=== PATIENT | male | born 1950 | race Caucasian/White ===

== ENCOUNTER 2017-04-06 20:21 | Observation (INO) | payer MEDICARE, OTHER ==
[2017-04-06 21:00] LABS: #Basophils 0.1 thou/uL (0.0-0.2); #Eosinphils 0.7 thou/uL (0.0-0.7); #Lymphocytes 2.2 thou/uL (1.20-3.40); #Monocytes 1.1 thou/uL (0.11-0.59); #Neutrophils 8.9 thou/uL (1.40-6.50); %Basophils 0.5 % (0.0-1.0); %Eosinophils 5.1 % (0.0-10.0); %Lymphocytes 17.1 % (21.0-51.0); %Monocytes 8.7 % (0.0-10.0); %Neutrophils 68.6 % (42.0-75.0); Hemoglobin 16.6 g/dL (14.0-18.0); Mean Corpuscular HGB CONC 33.5 g/dL (32.0-36.0); Mean Corpuscular Hemoglobin 32.5 pg (27.0-31.0); Mean Corpuscular Volume 97.2 fl (80.0-94.0); Mean Platelet Volume 6.3 fL (7.4-10.4); Platelet Count 283 thou/uL (130-400); RBC Distribution Width 11.6 % (11.5-14.5); Red Blood Cell (RBC) Count 5.12 mill/uL (4.70-6.10)
[2017-04-06 21:22] LABS: ALT (SGPT) 30 U/L (8-55); AST (SGOT) 17 U/L (5-34); Albumin 4.1 g/dL (3.4-4.8); Alkaline Phosphatase 130 U/L (40-150); Anion Gap 14 mmol/L (10-20); BUN (Urea Nitrogen) 42 mg/dL (8.4-25.7); Bilirubin, Total 0.3 mg/dL (0.2-1.2); Calc. Creatinine Clearance 0 mL/min (70-130); Calcium 9.6 mg/dL (7.8-10.44); Carbon Dioxide 26 mmol/L (23-31); Chloride 103 mmol/L (98-107); Estimated GFR-MDRD 29; Globulin 2.9 g/dL (2.4-3.5); Glucose 162 mg/dL (80-115); Sodium 139 mmol/L (136-145)
[2017-04-06 21:26] LABS: CKMB 2.5 ng/mL (0-6.6)
--- NOTE | 2017-04-06 23:01 | CT ---
CT BRAIN WITHOUT CONTRAST: History: Syncope. Comparison: None. FINDINGS: There is fluid filling both maxillary sinuses, worse on the right. No acute territorial infarct or hemorrhage. Mild atrophy. Calvarium is intact. IMPRESSION: No acute intracranial abnormality. POS: HOME
--- NOTE | 2017-04-06 23:09 | CT ---
CT CERVICAL SPINE WITHOUT CONTRAST: History: Syncope. Comparison: None. FINDINGS: The odontoid process is intact. Occipital condyles are intact. Chronic remottling of the mandibular c ondyles. Mild uncinate process hypertrophy at C2 through C6. No displaced fracture or malalignment. Nuchal ligament calcifications are present. Lung apices are clear. Paraspinal soft tissues are unrema rkable. IMPRESSION: Degenerative changes. No acute fracture or malalignment. POS: HOME
--- NOTE | 2017-04-06 23:30 | PDOC.EVN ---
Event Note - Event Note Event Note: [id number] H&P Dictated 1. Syncope 2. HTN 3. RELL Plan: see orders
[2017-04-06] MEDS ORDERED: Acetaminophen 325 MG TAB PO PRN (23:42)
[2017-04-06] MEDS ORDERED: Ondansetron HCl/PF 4 MG/2 ML Vial IVP PRN (23:42)
[2017-04-06] MEDS ORDERED: Ondansetron ODT 4 MG TAB SL PRN (23:42)
--- NOTE | 2017-04-06 23:57 | RAD ---
SEMI UPRIGHT PORTABLE CHEST ONE VIEW: History: 66-year-old male with syncope. FINDINGS: Heart size is within normal limits. The appear to be some healed right rib fractures. Atherosclerosis of the aorta with some ectasia. No confluent pneumonia, overt edema or pleural effusion. IMPRESSION: No acute intrathoracic disease. POS: [facility]
[2017-04-07 00:16] VITALS: BMI 36.5
[2017-04-07 00:33] LABS: Troponin I 0.014 ng/mL (< 0.028)
[2017-04-07] MEDS ORDERED: Albuterol Sulfate 2.5 mg/3 ml Neb NEB PRN (01:48)
[2017-04-07] MEDS: Guaifenesin DM 100-10/5 ML UDCUP PO PRN ×2 (02:05→12:44)
[2017-04-07] MEDS: Sodium Chloride 0.9% 1,000 ML IV SCH (02:13)
[2017-04-07 02:55] LABS: #Basophils 0.1 thou/uL (0.0-0.2); #Eosinphils 0.6 thou/uL (0.0-0.7); #Lymphocytes 2.7 thou/uL (1.20-3.40); #Monocytes 1.1 thou/uL (0.11-0.59); #Neutrophils 6.7 thou/uL (1.40-6.50); %Basophils 1.1 % (0.0-1.0); %Eosinophils 5.7 % (0.0-10.0); %Lymphocytes 23.6 % (21.0-51.0); %Monocytes 9.8 % (0.0-10.0); %Neutrophils 59.7 % (42.0-75.0); Hemoglobin 16.5 g/dL (14.0-18.0); Mean Corpuscular HGB CONC 33.9 g/dL (32.0-36.0); Mean Corpuscular Volume 97.3 fl (80.0-94.0); Mean Platelet Volume 6.2 fL (7.4-10.4); Platelet Count 256 thou/uL (130-400); RBC Distribution Width 11.5 % (11.5-14.5); Red Blood Cell (RBC) Count 4.99 mill/uL (4.70-6.10); White Blood Cell (WBC) Count 11.2 thou/uL (4.8-10.8)
[2017-04-07 03:14] LABS: Troponin I Less than 0.010 ng/mL (< 0.028)
[2017-04-07 03:25] LABS: Anion Gap 16 mmol/L (10-20); BUN (Urea Nitrogen) 42 mg/dL (8.4-25.7); Calc. Creatinine Clearance 68 mL/min (70-130); Calcium 9.5 mg/dL (7.8-10.44); Carbon Dioxide 22 mmol/L (23-31); Chloride 104 mmol/L (98-107); Estimated GFR-MDRD 40; Glucose 135 mg/dL (80-115); Potassium 4.6 mmol/L (3.5-5.1); Sodium 137 mmol/L (136-145)
--- NOTE | 2017-04-07 06:37 | HP ---
DATE OF ADMISSION: 04/06/2017 CHIEF COMPLAINT: Syncope. HISTORY OF PRESENT ILLNESS: Patient is a 66-year-old male with past medical history of hypertension now came to ER because of syncope. Patient said he was sitting in the chair and all of sudden, he pa ssed out. Once he passed out, he did fell and he complaints of loss consciousness for few minutes. Denies any bowel or bladder incontinence, denies seizure-like activity. When EMS was called, upon EM S arrival, patient was found to be heart rate around mid 40s and patient was hypotensive, but blood p ressure improved later on and patient's syncope resolved. Patient denies any chest pain, denies any palpitations, denies any nausea, denies vomiting. Prior to syncope, denies any similar episodes in t he past. PAST MEDICAL HISTORY: Hypertension. PAST SURGICAL HISTORY: UroLift surgery. SOCIAL HISTORY: Denies smoking, denies alcohol, denies any drugs. MEDICATIONS: Reviewed. FAMILY HISTORY: Denies any heart problems. REVIEW OF SYSTEMS: Constitutional: Denies any fever, denies any chills. Eyes: Denies any vision p roblems. Ears: Denies any hearing loss. Neck: Denies any neck pain. Cardiovascular system: Tony es any chest pain. Respiratory system: Denies any cough, denies any sputum production. Gastrointes tinal System: Denies any nausea, vomiting. Musculoskeletal: Denies any joint deformities. Cranial Nerve System: Positive for syncope. Psychiatric system: Denies any depression or anxiety. Integu mentary: Denies any rash. Genitourinary: Denies any dysuria. All other review of systems are revie wed and are negative. PHYSICAL EXAMINATION: CONSTITUTIONAL/VITAL SIGNS: At the time of H&P performed, blood pressure is 130/70, afebrile, pulse ox 97%. GENERAL: Patient appears comfortable. HEENT: Pupils equal, round, and reactive to light. Anterior nares patent. Nose normal. Ears yeimi l. Teeth intact. Tongue is moist. NECK: Supple. No JVD. CARDIOVASCULAR SYSTEM: S1, S2 present. Regular rate and rhythm. No murmurs, no rubs, no gallops. RESPIRATORY SYSTEM: No wheezing, no rhonchi. Breath sounds present bilaterally. GASTROINTESTINAL: Abdomen is soft, nontender. No guarding, no organomegaly, no masses felt. MUSCULOSKELETAL: No edema. NEUROLOGIC: Cranial nerves intact. Follows commands. Strength intact, sensory intact. PSYCHIATRIC: Mood is appropriate at this time. INTEGUMENTARY: No obvious rashes seen. LABORATORY DATA: At the time of H&P performed, white count 13, hemoglobin 16.6, platelet count is 28 3. D-dimer less than 0.27. BMP showed sodium 139, potassium 4, chloride 103, CO2 is 26, BUN of 42, creatinine 2.49. Baseline creatinine is unknown. ASSESSMENT AND PLAN: The patient is a 66-year-old male, 1. Syncope, rule out cardiology etiology. Plan to check cardiac enzymes. Plan to check carotid ult rasound and 2D echo. Plan to consult Cardiology to evaluate the patient. 2. Acute kidney injury, unknown, gentle IV fluids. CK might be due to hypotension and bradyca rdia. We will monitor. Repeat BMP in a.m. We will check urine studies. Pian worsens, we will cons ult Nephrology to evaluate the patient. 3. History of hypertension. Continue home blood pressure medications. 4. Case was discussed in detail with the patient.
[2017-04-07] MEDS: Heparin 5,000 UNITS/ML VIAL SC SCH ×3 (09:06→20:50)
[2017-04-07] MEDS: Famotidine 20 MG TAB PO SCH (09:08)
--- NOTE | 2017-04-07 09:17 | ULT ---
BILATERAL CAROTID DUPLEX ULTRASOUND WITH SPECTRAL ANALYSIS AND COLOR FLOW EVALUATION: Date: 04/07/17 HISTORY: Syncope. FINDINGS/IMPRESSION: Garcia scale, color flow, Doppler evaluation, and spectral analysis of the bilateral carotid arteries i s performed with 2D imaging. There is scattered atherosclerotic plaque seen within the distal left common carotid artery, as well as mild atherosclerotic plaque partially calcified within region of the right carotid bulb. There is less than 50% maximal stenosis within the bilateral internal carotid arteries according to t he peak systolic velocities and the ICA/CCA ratios. Peak systolic velocity in the right ICA is 107.5 cm/second, with an ICA/CCA ratio of 0.88. Peak systolic velocity in the left ICA is 92.8 cm/second, with an ICA/CCA ratio of 0.66. Antegrade flow is demonstrated in vertebral arteries bilaterally. IMPRESSION: No hemodynamically significant stenosis in the bilateral internal carotid arteries. POS: [facility]
[2017-04-07 12:49] LABS: Anion Gap 11 mmol/L (10-20); BUN (Urea Nitrogen) 33 mg/dL (8.4-25.7); Calc. Creatinine Clearance 84 mL/min (70-130); Carbon Dioxide 27 mmol/L (23-31); Chloride 103 mmol/L (98-107); Estimated GFR-MDRD 51; Glucose 107 mg/dL (80-115); Potassium 4.1 mmol/L (3.5-5.1); Sodium 137 mmol/L (136-145)
--- NOTE | 2017-04-08 03:25 | CON ---
DATE OF CONSULTATION: 04/07/2017 HISTORY OF PRESENT ILLNESS: Kishor Pappas is a 66-year-old white male who denies any previous cardiac problems or syncope. This evening, he was sitting in a chair, talking with his family and apparently has a syncopal episode. He states he was not trying to stand up. He just woke up on the floor. The family states he was out for approximately 30 seconds. He had no tonic-clonic movement or bowel or bladder incontinence. EMS was called and apparently, he had heart rates in the mid 40s, although that is not documented. He also was hypotensive. He denies any chest pain, shortness of breath, PND, orthopnea, or leg edema. PAST MEDICAL HISTORY: Hypertension. OPERATION: Bladder surgery. SOCIAL HISTORY: He does not smoke. He very rarely drinks. FAMILY HISTORY: Negative for coronary artery disease. REVIEW OF SYSTEMS: Twelve point review of systems unremarkable. PHYSICAL EXAMINATION: VITAL SIGNS: Blood pressure 132/66 when he was admitted to the ER, blood pressure was 127/67, pulse of 86. HEENT: PERRL. NECK: Supple. CHEST: Clear. CARDIAC: S1 and S2 are normal, without any S3, S4 or murmurs. Carotid upstrokes normal without bruits. ABDOMEN: Normal bowel sounds, without tenderness or organomegaly. The abdomen is mildly obese. EXTREMITIES: Revealed no clubbing, cyanosis or edema. NEUROLOGIC: Grossly intact. SKIN: Warm and dry. LABORATORY DATA: EKG revealed normal sinus rhythm with loss of R-waves from V2 to V3. Echocardiogram revealed ejection fraction of 60% to 65% with evidence for diastolic dysfunction, mild mitral regurgitation, mild tricuspid regurgitation. Hemoglobin 16.5, hematocrit 48.6, white count 11,200, platelets 256,000. D-dimer less than 0.27. Sodium 137, potassium 4.1, chloride 103, carbon dioxide 27, BUN 33, creatinine 1.40. It is of note that his admission BUN is 42 and admission creatinine 2.29. Cardiac enzymes are unremarkable. IMPRESSION: 1. Syncopal episode, probably related to volume depletion. 2. Possible bradycardia at the scene with heart rate in the 40s, although this is not documented. 3. Acute kidney injury secondary to diuretic and his blood pressure medication. 4. Hypertension. PLAN: I would change him to Edarbi without the chlorthalidone. I feel that volume depletion is the probable cause for his episode of syncope; however, arrangements will be made for a 30-day monitor. He will be seen in 5 weeks for followup. ANDREY
[2017-04-08 07:46] VITALS: BP 141/75; TEMP 98.3
[2017-04-08] MEDS: Famotidine 20 MG TAB PO SCH (08:21)
[2017-04-08] MEDS: Heparin 5,000 UNITS/ML VIAL SC SCH (08:21)
[2017-04-08] MEDS: Sodium Chloride 0.9% 1,000 ML IV SCH (08:21)
[2017-04-08] MEDS: Guaifenesin DM 100-10/5 ML UDCUP PO PRN (08:26)
--- NOTE | 2017-04-08 09:09 | DIS ---
TRANSFER OF CARE [facility] Call admission for [facility]. PRIMARY CARE PHYSICIAN: In [place]. DATE OF ADMISSION: 04/06/2017 DATE OF DISCHARGE: 04/08/2017 DISCHARGE DISPOSITION: Home. FINAL DIAGNOSES: Syncope, hypertension, acute renal failure, resolved. DISCHARGE MEDICATIONS: Edarbi 40 mg a day. MEDICATIONS HELD: The patient was on the same medicine with chlorthalidone and this was held. ALLERGIES: SULFA. PENDING AT THE TIME OF DISCHARGE: A 30-day monitor is being placed on the patient. He will see Dr. Dupont after this has been read. CODE STATUS: Full. HOSPITAL COURSE: The patient presented to the hospital with fainting spell. He was evaluated in the hospital. Brain CT unremarkable. Carotid ultrasound unremarkable. Echocardiogram was done, which revealed a normal EF with possible diastolic dysfunction. LABORATORY DATA: His initial creatinine was 2.29 with fluids. This came down to 1.40. Cardiac enzy mes were normal. EKG was unrevealing. CBC had a mild elevation of white count at 13.0, came down to 11.2, hemoglobin 16.6 and 16.5, platelet count 283,000 and 256,000. Diagnosis of simple syncope was made. The patient was seen in consultation by Dr. Loc Dupont at the patient and family's request. He is being placed on a 30-day monitor for followup with Dr. Brent españa. FOLLOWUP: Primary care doctor in 7 days, Dr. Dupont in 5 weeks. MEDICATION: Prescription for Edarbi 1 a day has been written.
== END 2017-04-08 10:15 | disposition home or self-care (01) ==
LOC: ERS 20:21 → 2SW 22:10
PROVIDERS: ADMIT Internal Medicine; ATTEND Internal Medicine
DX: R55 Syncope and collapse (principal); I10 Essential (primary) hypertension; N17.9 Acute kidney failure, unspecified; Z79.899 Other long term (current) drug therapy; Z88.2 Allergy status to sulfonamides; Z98.890 Other specified postprocedural states
CPT/HCPCS: 70450; 71010; 72125; 80048 ×2; 80053; 82553; 84484 ×3; 85025 ×2; 85379; 90732; 93005; 93306; 93880; 96360; 96361 ×2; 99285; G0009; G0378; 36415; 90471; J1644

== ENCOUNTER 2018-09-07 15:16 | Emergency (ER) | payer MEDICARE ==
[2018-09-07 15:47] LABS: #Basophils 0.1 thou/uL (0.0-0.2); #Eosinphils 0.4 thou/uL (0.0-0.7); #Lymphocytes 1.5 thou/uL (1.20-3.40); #Neutrophils 6.1 thou/uL (1.40-6.50); %Basophils 1.2 % (0.0-1.0); %Eosinophils 4.5 % (0.0-10.0); %Monocytes 11.3 % (0.0-10.0); Mean Corpuscular Hemoglobin 30.6 pg (27.0-31.0); Mean Corpuscular Volume 90.1 fL (78.0-98.0); Mean Platelet Volume 5.9 fL (7.4-10.4); Platelet Count 222 thou/uL (130-400); RBC Distribution Width 12.6 % (11.5-14.5); Red Blood Cell (RBC) Count 4.58 mill/uL (4.70-6.10); White Blood Cell (WBC) Count 9.1 thou/uL (4.8-10.8)
[2018-09-07 15:59] LABS: Anion Gap 14 mmol/L (10-20); BUN (Urea Nitrogen) 32 mg/dL (8.4-25.7); CK (CPK) 202 U/L (30-200); Calc. Creatinine Clearance 0 mL/min (70-130); Calcium 9.4 mg/dL (7.8-10.44); Carbon Dioxide 22 mmol/L (23-31); Chloride 108 mmol/L (98-107); Estimated GFR-MDRD 33; Glucose 122 mg/dL (80-115); Sodium 140 mmol/L (136-145)
[2018-09-07] MEDS ORDERED: Enoxaparin Sodium 100 MG/ML SYRINGE ONE (16:28)
--- NOTE | 2018-09-07 17:50 | ULT ---
VENOUS DOPPLER ULTRASOUND OF THE RIGHT LOWER EXTREMITY: 09/07/18 HISTORY: Right lower extremity pain. TECHNIQUE: Garcia scale, color flow and spectral Doppler imaging of the deep venous system of the right lower extr emity was performed. FINDINGS: There is absence of compression in the right proximal popliteal vein due to nonocclusive thrombus an d absence of compression due to an occlusive thrombus in the distal right popliteal and posterior tib ial veins. The remainder of the deep venous system in the right lower leg is otherwise patent. IMPRESSION: DVT in the right lower extremity. Discussed over the telephone with ER physician, Dr. Bubba Harris at 4 p.m. POS: [facility]
== END 2018-09-07 16:51 | disposition home or self-care (01) ==
LOC: SCSER 15:16
DX: I82.401 Acute embolism and thrombosis of unspecified deep veins of right lower extremity (principal); I10 Essential (primary) hypertension; E78.5 Hyperlipidemia, unspecified; Z87.891 Personal history of nicotine dependence; Z79.899 Other long term (current) drug therapy
CPT/HCPCS: 80048; 82550; 85025; 85379; J1650

== ENCOUNTER 2018-10-25 10:36 | Outpatient (CLI) | payer MEDICARE ==
--- NOTE | 2018-10-25 10:56 | ULT ---
ABDOMINAL AORTIC ULTRASOUND: Grayscale and Doppler color flow imaging performed. CLINICAL HISTORY: Screening evaluation for abdominal aortic aneurysm. FINDINGS: The proximal aorta demonstrates a diameter of 1.89 cm, mid abdominal aorta 1.67 cm, and distal abdomi nal aorta 1.72 cm. No discrete evidence of abdominal aortic aneurysm is present. IMPRESSION: No sonographic evidence of an abdominal aortic aneurysm. Transcribed Date/Time: 10/25/2018 11:40 AM
== END 2018-10-25 10:37 | disposition home or self-care (01) ==
LOC: SCSULT 10:36
PROVIDERS: ATTEND Family Medicine
DX: Z13.6 Encounter for screening for cardiovascular disorders (principal)
CPT/HCPCS: 76706